=== PATIENT | female | born 1970 | race Caucasian/White ===

== ENCOUNTER 2021-04-02 12:58 | Outpatient (REF) | payer MEDICAID, SELFPAY ==
[2021-04-04 16:01] LABS: COVID-19 RT-PCR UVMMC Result Negative (Negative)
== END 2021-04-02 12:59 | disposition home or self-care (01) ==
LOC: LBN 12:58
PROVIDERS: Visit Provider Physician Assistant Medical
DX: Z20.822 Contact with and (suspected) exposure to COVID-19 (principal); J06.9 Acute upper respiratory infection, unspecified
CPT/HCPCS: U0003

== ENCOUNTER 2021-05-25 09:52 | Outpatient (REF) | payer MEDICAID, SELFPAY ==
[2021-05-25 15:59] LABS: ALT 76 U/L (14-59); AST 47 U/L (15-37); Alkaline Phosphatase 156 U/L (46-116); Anion Gap 11.4 mmol/L (3-11); BUN 10 mg/dL (7-18); Bilirubin, Total 0.6 mg/dL (0.2-1.0); CO2 25.6 mmol/L (21.0-32.0); CREATININE 0.7 mg/dL (0.55-1.02); Calcium 9.1 mg/dL (8.5-10.1); Calculated LDL 130 mg/dL (<100); Chloride 103 mmol/L (98-107); Cholesterol 189 mg/dL (<200); Glucose 289 mg/dL (74-106); HDL Cholesterol 47 mg/dL (40-60); Sodium 140 mmol/L (136-145); TSH (W/Ref FT4) 2.74 uIU/mL (0.36-3.74); Total Protein 7.2 g/dL (6.4-8.2); Triglyceride 60 mg/dL (<150)
[2021-05-25 16:52] LABS: Hemoglobin A1C 10.7 % (<5.7)
== END 2021-05-25 09:53 | disposition home or self-care (01) ==
LOC: NCHCN 09:52
PROVIDERS: Visit Provider Nurse Practitioner Family
DX: Z13.29 Encounter for screening for other suspected endocrine disorder (principal); Z13.220 Encounter for screening for lipoid disorders; R73.9 Hyperglycemia, unspecified; Z00.00 Encounter for general adult medical examination without abnormal findings
CPT/HCPCS: 80053; 80061; 83036; 84443

== ENCOUNTER 2021-11-12 20:35 | Outpatient (REF) | payer MEDICAID, SELFPAY ==
[2021-11-12 15:52] LABS: Hemoglobin A1C 6.2 % (<5.7)
[2021-11-12 16:33] LABS: Vitamin D 25 Total 7.1 ng/mL (30-100)
[2021-11-12 16:35] LABS: ALT 48 U/L (14-59); AST 32 U/L (15-37); Albumin 4.4 g/dL (3.4-5.0); Alkaline Phosphatase 82 U/L (46-116); Anion Gap 12.6 mmol/L (3-11); BUN 12 mg/dL (7-18); Bilirubin, Total 0.7 mg/dL (0.2-1.0); CO2 26.4 mmol/L (21.0-32.0); CREATININE 0.7 mg/dL (0.55-1.02); Calcium 9.7 mg/dL (8.5-10.1); Chloride 101 mmol/L (98-107); Glucose 107 mg/dL (74-106); Potassium 4.2 mmol/L (3.5-5.1); Sodium 140 mmol/L (136-145); Total Protein 7.5 g/dL (6.4-8.2); Vitamin B12 282 pg/mL (193-986)
== END 2021-11-12 20:36 | disposition home or self-care (01) ==
LOC: NCHCN 20:35
PROVIDERS: Visit Provider Nurse Practitioner Family
DX: E11.65 Type 2 diabetes mellitus with hyperglycemia (principal); K76.0 Fatty (change of) liver, not elsewhere classified
CPT/HCPCS: 80053; 82306; 82607; 83036

== ENCOUNTER 2021-11-21 14:26 | Outpatient (REF) | payer MEDICAID, SELFPAY | END 2021-11-21 14:27 | disposition home or self-care (01) | LOC: LBN 14:26 | PROVIDERS: Visit Provider Physician Assistant Medical | DX: R39.15 Urgency of urination (principal) | CPT/HCPCS: 87077; 87086; 87186 ==

== ENCOUNTER 2022-11-04 14:05 | Outpatient (REF) | payer MEDICAID, SELFPAY ==
[2022-11-04 16:32] LABS: ALT 52 U/L (14-59); AST 25 U/L (15-37); Albumin 4.2 g/dL (3.4-5.0); Alkaline Phosphatase 133 U/L (46-116); BUN 12 mg/dL (7-18); Bilirubin, Total 0.3 mg/dL (0.2-1.0); CREATININE 0.9 mg/dL (0.55-1.02); Calcium 9.5 mg/dL (8.5-10.1); Chloride 104 mmol/L (98-107); Estimated GFR 77.88 (mL/min/1.73m2); Glucose 134 mg/dL (74-106); Potassium 4.2 mmol/L (3.5-5.1); Sodium 141 mmol/L (136-145); Total Protein 7.3 g/dL (6.4-8.2)
[2022-11-04 16:52] LABS: Vitamin D 25 Total 40.2 ng/mL (30-100)
== END 2022-11-04 14:06 | disposition home or self-care (01) ==
LOC: NCHCN 14:05
PROVIDERS: Visit Provider Nurse Practitioner Family
DX: E11.9 Type 2 diabetes mellitus without complications (principal); K76.0 Fatty (change of) liver, not elsewhere classified; E55.9 Vitamin D deficiency, unspecified
CPT/HCPCS: 80053; 82306

== ENCOUNTER 2023-03-25 00:11 | Outpatient (CLI) | payer MEDICAID, SELFPAY ==
--- NOTE | 2023-03-25 10:56 | DI.CTLCSR_ITS ---
Exam(s) CT CHEST LUNG CANCER SCREEN EXAM: CT CHEST LUNG CANCER SCREEN CLINICAL HISTORY: H/O TOBACCO USE IN REMISSION, Z87.891 TECHNIQUE: Imaging Protocol: Axial computed tomography images with coronal and sagittal reformatted images were created and reviewed COMPARISON: No exams were available for comparison FINDINGS: Tracheobronchial tree: Patent where visualized. Pulmonary parenchyma: No consolidation or dominant measurable mass. Mild centrilobular emphysematous changes are present. There is a linear vessel seen in the right lower lobe which tracks to the right major fissure. Lung Nodules: None. Mediastinum and Palma: No dominant adenopathy or fluid collection. The esophagus is unremarkable. Thyroid gland: Unremarkable. Lymph nodes: Unremarkable. Pleura: No effusion or pneumothorax. Heart: The heart is not dilated. No coronary artery calcifications are seen. No pericardial effusion . Aorta: Thoracic aorta non-dilated. Upper abdomen: Unremarkable. Soft Tissues: Unremarkable. Bones: Within normal limits. IMPRESSION: No pulmonary nodules. Lung RADS Cat 1 - Negative: No nodules and definitely benign nodules Lung-RADS 1.0 CATEGORIES: Category 0 - Prior chest CT exam(s) being located for comparison. Category 1 - Annual screening in 12 months. No nodules or definitely benign nodules. Category 2 - Annual screening in 12 months. Benign appearance. Nodules with low likelihood of becomin g active cancer. Category 3 - 6-month follow-up. Probably benign. Short-term follow-up suggested. Nodules with low lik elihood of becoming active cancer. Category 4A - 3-month follow-up and CT/PET if >8 mm in size. Suspicious finding. Findings which requi re additional testing. Category 4B - Findings which require additional testing and tissue sampling. Suspicious finding. Category 4X - Category 3 or 4 nodules with additional features or imaging findings that increases the suspicion of malignancy. Modifier S- Potentially clinically significant finding. (Non lung cancer) RADIATION DOSE DELIVERED: 69mGy.cm Total DLP 69mGy.cmTotal DLP DATA REPOSITORY: All CT scans at this facility are submitted to the National Radiology Data Registry (NRDR) Dose Index Registry (DIR) with the [employer] (ACR). RADIATION OPTIMIZATION: All CT scans at this facility use at least one of these dose optimization te chniques: automated exposure control; mA and/or kV adjustment per patient size (includes targeted exa ms where dose is matched to clinical indication); or iterative reconstruction.
== END 2023-03-25 00:31 ==
LOC: DI 00:11
PROVIDERS: Visit Provider Nurse Practitioner Family
DX: Z12.2 Encounter for screening for malignant neoplasm of respiratory organs (principal); Z87.891 Personal history of nicotine dependence
CPT/HCPCS: 71271

== ENCOUNTER 2023-09-16 15:47 | Emergency (ER) | payer MEDICAID, SELFPAY ==
[2023-09-16 15:49] VITALS: BP 177/89; PULSE 70; RESP 18; TEMP 37; O2SAT 98
--- OUTSIDE RECORDS SUMMARY | 2023-09-16 15:52 | XMS_ITS | Continuity of Care Document ---
Author Name Unknown Organization [facility] Ambulatory Clinics Address [address] [place] [address] Care Team Providers Care Forest Botany Instructor Name Role Phone CHRISTINE ELEANOR HERNANDEZ Primary Care Physician Encounter [facility] NBR [id number] Date(s): 09/28/22 - 09/28/22 [facility] Ambulatory Clinics [address] [place], [place] [address] Encounter Diagnosis Bacterial vaginosis(Discharge Diagnosis) - 09/28/22 Other specified bacterial agents as the cause of diseases classified elsewhere (Discharge Diagnosis) - 09/28/22 Screening for malignant neoplasm of cervix(Discharge Diagnosis) - 09/28/22 Cervical cancer screening(Discharge Diagnosis) - 09/28/22 Uterine prolapse(Discharge Diagnosis) - 09/28/22 Discharge Disposition: Home or Self Care Attending Physician: Carlos Burkett MD Allergies, Adverse Reactions, Alerts Substance Reaction Severity Status penicillin Unknown Active Functional Status 09/28/22 Other exposure to Infectious Disease Non e Medications !-Flagyl 500 mg oral tablet 500 mg = 1 tab, Oral, BID, # 14 tab, 0 Refill(s), Pharmacy: [facility] #[id number] Start Date: 09/28/22 Stop Date: 10/05/22 Status: Ordered acyclovir 800 mg oral tablet 800 mg = 1 tab, Oral, Twice daily for 5 days for infection PRN, 0 Refill(s) Start Date: 09/28/22 Status: Ordered buPROPion 300 mg/24 hours (XL) oral tablet, extended release 0 Refill(s) Start Date: 06/18/22 Status: Ordered clobetasol 0.05% topical ointment 1 application to affected area externally twice a day for one week, then once a day for one week, then weekly., 0 Refill(s) Start Date: 09/28/22 Status: Ordered dextroamphetamine-amphetamine 30 mg oral capsule, extended release 0 Refill(s) Start Date: 06/18/22 Status: Ordered fluconazole 200 mg =, 1 tablet orally today and repeat in 4 days., 0 Refill(s) Start Date: 09/28/22 Status: Ordered fluticasone 50 mcg/inh nasal spray 0 Refill(s) Start Date: 06/18/22 Status: Ordered ibuprofen 200 mg =, 1 tablet with food or milk as needed orally three times a day., 0 Refill(s) Start Date: 09/28/22 Status: Ordered ketoconazole 2% topical cream Apply topically to feet twice daily external., 0 Refill(s) Start Date: 09/28/22 Status: Ordered Lexapro 10 mg oral tablet 10 mg = 1 tab, Oral, Daily, # 30 tab, 0 Refill(s) Start Date: 09/28/22 Status: Ordered melatonin 10 mg oral capsule 2 gummies every night at bedtime. 10mg total., 0 Refill(s) Start Date: 09/28/22 Status: Ordered metFORMIN 500 mg =, Oral, BID, 1 tablet with a meal orally twice a day, 0 Refill(s) Start Date: 09/28/22 Status: Ordered metFORMIN 500 mg oral tablet 0 Refill(s) Start Date: 06/18/22 Status: Ordered omeprazole 20 mg oral delayed release capsule 20 mg = 1 cap, Oral, Daily, 0 Refill(s) Start Date: 06/18/22 Status: Ordered Trulicity Pen 1.5 mg/0.5 mL subcutaneous solution Trulicity 1.5 MG/0.5 ML solution pen-injector as directed subcutaneous once a week, 0 Refill(s) Start Date: 06/18/22 Status: Ordered valACYclovir 1 g =, 1g once daily., 0 Refill(s) Start Date: 09/28/22 Status: Ordered Wellbutrin XL 150 mg =, 1 tablet in the morning orally once a day, 0 Refill(s) Start Date: 09/28/22 Status: Ordered zolpidem 10 mg =, 1 tablet at bedtime as needed orally once a day., 0 Refill(s) Start Date: 09/28/22 Status: Ordered zolpidem 5 mg oral tablet 0 Refill(s) Start Date: 06/18/22 Status: Ordered Problem List Condition Confirmation Course Effective Dates Status Health St atus Informant ADHD Confirmed Active Chlamydia Confirmed Active Depressive disorder Confirmed Active Genital herpes Confirmed Active Diabetes, gestational Confirmed Active Myalgia Confirmed Active Obesity Confirmed Active Knee pain Confirmed Active DM (diabetes mellitus), type 2 1 Confirmed Active Cubital tunnel syndrome Confirmed 02/1998 Active 1Diagnosed 04/2021 Procedures Procedure Date Related Diagnosis Body Site Status Excision 2020 Completed Colonoscopy 2 12/28/18 Completed EGD - Esophagogastroduodenoscopy 3 12/28/18 Completed Cancer of skin 4 10/2018 Complete d Bilateral tubal ligation 5 05/05/15 Completed Wrist 6 08/09/13 Completed Surgery 7 Completed 1Excision - skin cancer left arm [address] C[address]is 3Dr. Cimis 4Right arm, skin cancer 5Novasure ablation, IUD removal 6Plate in wrist 7Cubital tunnel surgery on right elbow Vital Signs Most recent to oldest [Reference Range]: 1 Blood Pressure [90-140/60-90 mmHg] 120/8 0mmHg (09/28/22 10:58 AM) Weight 94.4 kg (09/28/22 10:58 AM) Weight Measured (lbs) 208.116 lb (09/28/22 10:58 AM) [place] Body Weight Calculated 47.8 kg (09/28/22 10:58 AM) Height 154.94 cm (09/28/22 10:58 AM) Height/Length Measured (inches) 61 inch (09/28/22 10:58 AM) BSA Measured 2.02 m2 (09/28/22 10:58 AM) Body Mass Index 39.32 kg/m2 (09/28/22 10:58 AM) Social History Social History Type Response Smoking Status Smoking tobacco use: Former tobacco user;Never entered on: 09/28/22 Sex Female Physician Outpatient Note * Carlos Burkett MD: PERFORM Event Display: Office Clinic Note Physician Authored Date: [id number] ASNTIAGO RODAS :1970 Age:51 years Sex:Female Visit Date:09/28/2022 Primary Care Physician: ELEANOR KING APRN Chief Complaint Pt states she has a strange odor, itchiness on the inside, possible laceration on labia. Sx startedlast night. Burning with urination d/t possible laceration. Denies discharge. Denies any new soaps,lotions, detergents. History of Present Illness 3-year-old presents today for evaluation of??vulvar irritation and??odor. ??She reports that this been present for last couple of days. ??She denies any abnormal discharge. ??No normal bleeding.?? She does note??an area of irritation on the vulva??in the interlabial fold??on the left. ?? 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 Mammogram is overdue. Review of Systems As per [facility] Physical Exam Vitals & Measurements BP:??120/80?? HT:??154.94??cm?? WT:??94.4??kg?? BMI:??39.32?? BSA:??2.02?? Pelvic: Small excoriation noted in the left interlabial fold. Uterine prolapse beyond introitus noted but not terribly bothersome to the patient at this point. No abnormal discharge. Pap smear collected. ?? Wet prep: Rare clue cells. Assessment/Plan 1.??Bacterial vaginosis??N76.0 Will treat with flagyl 500 mg BID x 7 days. Follow up if symptoms do not improve or resolve. ?? 2.??Screening for malignant neoplasm of cervix??Z12.4,??Cervical cancer screening??Z12.4 Pap smear collected. Will contact patient with results. Ordered: Outside Lab Request, 09/28/22 13:19:00 EST, Stop date 09/28/22 13:19:00 EST, Cervical cancer screening ?? 3.??Uterine prolapse??N81.4 Asymptomatic. She has trialed a pessary in the past. Does not desire any treatment at this point. ?? Other specified bacterial agents as the cause of diseases classified elsewhere??B96.89 ?? Orders: !-Flagyl 500 mg oral tablet, 500 mg = 1 tab, Oral, BID, # 14 tab, 0 Refill(s), Pharmacy: [facility] #[id number] Problem List/Past Medical History Ongoing ADHD Chlamydia Cubital tunnel syndrome Depressive disorder Diabetes, gestational DM (diabetes mellitus), type 2 Genital herpes Knee pain Myalgia Obesity Historical Procedure/Surgical History ???Excision (2020)???Colonoscopy (12/29/2018)???EGD - Esophagogastroduodenoscopy (12/29/2018)???Cancer of skin (10/2018)???Bilateral tubal ligation (05/06/2015)???Wrist (08/10/2013)???Surgery Medications !-Flagyl 500 mg oral tablet, 500 mg= 1 tab, Oral, BID acyclovir 800 mg oral tablet, 800 mg= 1 tab, Oral buPROPion 300 mg/24 hours (XL) oral tablet, extended release clobetasol 0.05% topical ointment dextroamphetamine-amphetamine 30 mg oral capsule, extended release fluconazole, 200 mg fluticasone 50 mcg/inh nasal spray ibuprofen, 200 mg ketoconazole 2% topical cream Lexapro 10 mg oral tablet, 10 mg= 1 tab, Oral, Daily melatonin 10 mg oral capsule metFORMIN, 500 mg, Oral, BID metFORMIN 500 mg oral tablet omeprazole 20 mg oral delayed release capsule, 20 mg= 1 cap, Oral, Daily Trulicity Pen 1.5 mg/0.5 mL subcutaneous solution valACYclovir, 1 g Wellbutrin XL, 150 mg zolpidem, 10 mg zolpidem 5 mg oral tablet Allergies penicillin Social History Alcohol Current- Comments: Rare Electronic Cigarette/Vaping Electronic Cigarette Use: Former use, quit more than 90 days ago. Employment/School Unemployed Home/Environment Lives with Children, Spouse. Living situation: Home/Independent. Sexual Sexually active: Yes. Substance Use Never Tobacco Former tobacco user Tobacco Use:. Never Smokeless Tobacco use:. Family History Alcoholism: Father. Bladder cancer: Father. Bowel: Son. Cancer: Brother and Grandfather (M). Dementia: Grandmother (P). Depression: Sister. Diabetes mellitus: Mother and Grandmother (P). Family member : Father, Grandfather (M), Grandfather (P), Grandmother (M) and Grandmother (P). Hypercholesterolemia: Sister. Hypertension: Father. Mental illness: Sister. Smoker: Father. Thyroid: Mother. Electronically Signed on 09/28/22 01:26 PM Carlos Burkett MD Patient Care team information Personnel Name: ELEANOR KING APRN Address: Address: [address] [place] [id number] [place]
--- OUTSIDE RECORDS SUMMARY | 2023-09-16 15:52 | XMS_ITS | Continuity of Care Document ---
Author Name Unknown Organization [facility] Address [address] [place] [id number] Encounter [facility] NBR [id number] Date(s): 01/13/23 - 01/13/[address] [address]- Discharge Disposition: Home or Self Care Attending Physician: ELEANOR KING APRN Admitting Physician: ELEANOR KING APRN Referring Physician: ELEANOR KING APRN Allergies, Adverse Reactions, Alerts Substance Reaction Severity Status penicillin Unknown Active Medications !-Flagyl 500 mg oral tablet 500 mg = 1 tab, Oral, BID, # 14 tab, 0 Refill(s), Pharmacy: [facility] #[id number] Start Date: 09/28/22 Stop Date: 10/05/22 Status: [...] 0 Refill(s) Start Date: 06/18/22 Status: Ordered Diflucan 150 mg oral tablet 150 mg = 1 tab, Oral, Once, Take one tablet and repeat in 3 days, # 2 tab, 1 Refill(s), Pharmacy: [facility] #[id number] Start Date: 11/03/22 Status: Ordered fluticasone 50 mcg/inh nasal spray [...] wrist 7Cubital tunnel surgery on right elbow Results Radiology Reports * Exam Date Time Procedure Performing Provider Status 01/13/23 9:05 AM MG Mammo Diagnostic Right Patrica Mckenna cari; Auth (Verified) Notes: (MG Mammo Diagnostic Right) Reason For Exam: ABNORMAL MG MG Mammo Diagnostic Right EXAM DESCRIPTION: MG Mammo Diagnostic Right 01/13/2023 INDICATION: ABNORMAL MG COMPARISON: Screening mammogram from 12/13/2022 BREAST DENSITY: There are scattered areas of fibroglandular density. FINDINGS: Spot compression right CC view, rolled right CC views and true lateral view the right breast were performed with digital breast tomosynthesis. Images were reviewed using computer aided detection. Previously described small asymmetry in the medial aspect of the right breast persists on problem solving views. Right breast ultrasound, reported separately, demonstrated a small cyst in this region. No mammographic evidence of malignancy in the right breast. Results were discussed with the patient at the time of examination. ASSESSMENT: No mammographic evidence of malignancy. Benign findings. BI-RADS category 2. RECOMMENDATION: 1: Screening mammography in 1 year JOB #: [id number] Final Signed by: Carlos Oliver MD Signed (Electronic Signature): 01/13/2023 9:48 am Social History Social History Type Response Smoking Status Smoking tobacco use: Former tobacco user;Never entered on: 09/28/22 Sex Female MG Breast - right Diagnostic * Carlos Oliver MD: VERIFY, VERIFY Event Display: Report EXAM DESCRIPTION: MG Mammo Diagnostic Right 01/13/2023 INDICATION: ABNORMAL MG COMPARISON: Screening mammogram from 12/13/2022 BREAST DENSITY: There are scattered areas of fibroglandular density. FINDINGS: Spot compression right CC view, rolled right CC views and true lateral view the right breast were performed with digital breast tomosynthesis. Images were reviewed using computer aided detection. Previously described small asymmetry in the medial aspect of the right breast persists on problem solving views. Right breast ultrasound, reported separately, demonstrated a small cyst in this region. No mammographic evidence of malignancy in the right breast. Results were discussed with the patient at the time of examination. ASSESSMENT: No mammographic evidence of malignancy. Benign findings. BI-RADS category 2. RECOMMENDATION: 1: Screening mammography in 1 year JOB #: [id number] Final Signed by: Carlos Oliver MD Signed (Electronic Signature): 01/13/2023 9:48 am Patient Care team information Care Team Related Persons Name: BIANCA RODAS Address: [address] [phone] [facility] Name: BIANCA RODAS Address: [address] [phone] [facility]
--- OUTSIDE RECORDS SUMMARY | 2023-09-16 15:52 | XMS_ITS | Continuity of Care Document ---
Author Name Unknown Organization [facility] Address [address] [place] [id number] Encounter [facility] NBR [id number] Date(s): 01/13/23 - 01/13/[address] [address] [place] Discharge Disposition: Home or Self Care Attending Physician: FRANKY FERNANDEZ Admitting Physician: FRANKY FERNANDEZ Referring Physician: FRANKY FERNANDEZ Allergies, Adverse Reactions, Alerts Substance Reaction Severity Status penicillin Unknown Active Medications !-Flagyl 500 mg oral tablet 500 mg = 1 tab, Oral, BID, # 14 tab, 0 Refill(s), Pharmacy: [facility] #[id number] Start Date: 09/28/22 Stop Date: 10/05/22 Status: [...] days, # 2 tab, 1 Refill(s), Pharmacy: [facility] #[id number] Start Date: 11/03/22 Status: Ordered fluticasone 50 [...] Date Time Procedure Performing Provider Status 01/13/23 9:45 AM US Breast Limited Right Fernando Garcia (Verified) Notes: (US Breast Limited Right) Reason For Exam: ABNORMAL MG US Breast Limited Right EXAM DESCRIPTION: US Breast Limited Right 01/13/2023 INDICATION: US Breast Limited Right TECHNIQUE: Limited grayscale ultrasound examination of the right breast was performed targeted to small asymmetry on mammogram. This examination was performed in conjunction with diagnostic right mammogram. COMPARISON: Diagnostic right mammogram from 01/13/2023 and screening mammogram from 12/13/2022 FINDINGS: Small smoothly marginated ovoid hypoechoic lesion with faint through transmission at the 3 o'clock position 2 cm from the nipple consistent with small cyst with mild internal echoes measuring approximately 5 x 5 x 3 mm. No suspicious findings in this region Results were discussed with the patient at the time of examination. ASSESSMENT: No evidence of malignancy. Benign findings. BI-RADS category 2. RECOMMENDATION: Screening mammography in 1 year JOB #: [id number] Final Signed by: Carlos Oliver MD Signed (Electronic Signature): 01/13/2023 9:49 am Social History Social History Type Response Smoking Status Smoking tobacco use: Former tobacco user;Never entered on: 09/28/22 Sex Female US Breast - right limited * Carlos Oliver MD: VERIFY, VERIFY Event Display: Report EXAM DESCRIPTION: US Breast Limited Right 01/13/2023 INDICATION: US Breast Limited Right TECHNIQUE: Limited grayscale ultrasound examination of the right breast was performed targeted to small asymmetry on mammogram. This examination was performed in conjunction with diagnostic right mammogram. COMPARISON: Diagnostic right mammogram from 01/13/2023 and screening mammogram from 12/13/2022 FINDINGS: Small smoothly marginated ovoid hypoechoic lesion with faint through transmission at the 3 o'clock position 2 cm from the nipple consistent with small cyst with mild internal echoes measuring approximately 5 x 5 x 3 mm. No suspicious findings in this region Results were discussed with the patient at the time of examination. ASSESSMENT: No evidence of malignancy. Benign findings. BI-RADS category 2. RECOMMENDATION: Screening mammography in 1 year JOB #: [id number] Final Signed by: Carlos Olvier MD Signed (Electronic Signature): 01/13/2023 9:49 am Patient Care team information Care Team Related Persons Name: BIANCA RODAS Address: [address] [phone] [facility] Name: BIANCA RODAS Address: [address] [phone] [facility]
--- OUTSIDE RECORDS SUMMARY | 2023-09-16 15:52 | XMS_ITS | Continuity of Care Document ---
Author Name Unknown Organization [facility] Ambulatory Clinics Address [address] [place] [address] Care Team Providers Care Income Tax Investigator Name Role Phone Unavailable, Physician Primary Care Physician Un available Encounter [facility] NBR [id number] Date(s): 08/27/23 - 08/27/23 [facility] Ambulatory Clinics [address] [place], [place] [address] Encounter Diagnosis Influenza A(Discharge Diagnosis) - 08/27/23 Discharge Disposition: Home or Self Care Attending Physician: Matilde Poole PA-C Admitting Physician: Matilde Poole PA-C Allergies, Adverse Reactions, Alerts Substance Reaction Severity Status penicillin Unknown Active Medications !-Flagyl 500 mg oral tablet 500 mg = 1 tab, Oral, BID, # 14 tab, 0 Refill(s), Pharmacy: [facility] #[id number] Start Date: 09/28/22 Stop Date: 10/05/22 Status: [...] days, # 2 tab, 1 Refill(s), Pharmacy: [facility] #[id number] Start Date: 11/03/22 Status: Ordered fluticasone 50 [...] 0 Refill(s) Start Date: 06/18/22 Status: Ordered ProAir HFA 90 mcg/inh inhalation aerosol 1 puffs, Inhale, every 6 hr, PRN as needed for wheezing, # 8.5 g, 0 Refill(s), Pharmacy: [facility] #[id number], 154.94, cm, 08/27/23 19:33:00 EST, Height, 98.88, kg, 08/27/23 19:36:00 EST, Weight Dosing Start Date: 08/27/23 Status: Ordered Tamiflu 75 mg oral capsule 75 mg = 1 cap, Oral, BID, # 10 cap, 0 Refill(s), Pharmacy: [facility] #[id number], 154.94, cm,08/27/23 19:33:00 EST, Height, 98.88, kg, 08/27/23 19:36:00 EST, Weight Dosing Start Date: 08/27/23 Stop Date: 09/01/23 Status: Ordered Tessalon Perles 100 mg oral capsule 100 mg = 1 cap, Oral, TID, PRN as needed for cough, # 21 cap, 0 Refill(s), [facility][id number], 154.94, cm, 08/27/23 19:33:00 EST, Height, 98.88, kg, 08/27/23 19:36:00 EST, Weight Dosing Start Date: 08/27/23 Stop Date: 09/03/23 Status: Ordered Trulicity Pen 1.5 mg/0.5 mL [...] 7Cubital tunnel surgery on right elbow Results Laboratory List Name Date SARS-CoV-2 (Covid-19) AG (Arlene) POCT Influenza A/B (Arlene) POCT 08/27/23 Most recent to oldest [Reference Range]: 1 SARS-CoV or CoV-2 (COVID-19) Ag (Arlene) [Negative] Negative (08/27/23 7:50 PM) Employed in healthcare? Unknown *NA* (08/27/23 7:50 PM) Symptomatic as defined by CDC? Unknown *NA* (08/27/23 7:50 PM) Date of onset (Lab) Unknown *NA* (08/27/23 7:50 PM) Hospitalized due to COVID-19? Unknown *NA* (08/27/23 7:50 PM) In ICU? Unknown *NA* (08/27/23 7:50 PM) Group care resident? Unknown *NA* (08/27/23 7:50 PM) status? Unknown *NA* (08/27/23 7:50 PM) Influenza A (Arlene) POCT [Negative] Posi tive *ABN* (08/27/23 7:49 PM) Influenza B (Arlene) POCT [Negative] Nega tive (08/27/23 7:49 PM) Vital Signs Most recent to oldest [Reference Range]: 1 Temperature Tympanic [36.6-38.1 Deg C] 3 7.8 Deg C (08/27/23 7:33 PM) Peripheral Pulse Rate [60-100 bpm] 98 bp m (08/27/23 7:33 PM) Respiratory Rate [12-24 br/min] 20 br/mi n (08/27/23 7:33 PM) Blood Pressure [90-140/60-90 mmHg] 133/7 9mmHg (08/27/23 7:33 PM) Mean Arterial Pressure, Cuff [70-110 mmH g] 97 mmHg (08/27/23 7:33 PM) Weight 98.88 kg (08/27/23 7:33 PM) Weight Measured (lbs) 217.993 lb (08/27/23 7:33 PM) Weight Dosing 98.880 kg (08/27/23 7:33 PM) Height 154.94 cm (08/27/23 7:33 PM) Height/Length Measured (inches) 61 inch (08/27/23 7:33 PM) BSA Measured 2.06 m2 (08/27/23 7:33 PM) Body Mass Index 41.19 kg/m2 (08/27/23 7:33 PM) Social History Social History Type Response Smoking Status Smoking tobacco use: Former tobacco user;Never entered on: 09/28/22 Sex Female Patient Care team information Care Team Personnel Name: Unavailable, Physician Position: No Access Member Role: Primary Care Physician Care Team Related Persons Name: BIANCA RODAS Address: [address] [phone] [facility] Name: BIANCA RODAS Address: [address] [phone] [facility]
--- OUTSIDE RECORDS SUMMARY | 2023-09-16 15:52 | XMS_ITS | Continuity of Care Document ---
Author Name Unknown Organization [facility] Ambulatory Clinics Address [address] [place] [address] Encounter [facility] NBR [id number] Date(s): 06/18/22 - 06/18/22 [facility] Ambulatory Clinics [address] [place], [place] [address] Encounter Diagnosis Sore throat(Discharge Diagnosis) - 06/18/22 Discharge Disposition: Home or Self Care Attending Physician: Jess Santiago APRN Functional Status 06/18/22 Other exposure to Infectious Disease Non e Medications buPROPion 300 mg/24 hours (XL) oral tablet, extended release 0 Refill(s) Start Date: 06/18/22 Status: Ordered dextroamphetamine-amphetamine 30 mg oral capsule, extended release 0 Refill(s) Start Date: 06/18/22 Status: Ordered fluticasone 50 mcg/inh nasal spray 0 Refill(s) Start Date: 06/18/22 Status: Ordered metFORMIN 500 mg oral tablet 0 Refill(s) Start Date: 06/18/22 Status: Ordered omeprazole 20 mg oral delayed release capsule 0 Refill(s) Start Date: 06/18/22 Status: Ordered Trulicity Pen 1.5 mg/0.5 mL subcutaneous solution 0 Refill(s) Start Date: 06/18/22 Status: Ordered zolpidem 5 mg oral tablet 0 Refill(s) Start Date: 06/18/22 Status: Ordered Results Laboratory List Name Date SARS-CoV-2 (COVID-19) Antigen (Binax) PO CT 06/18/22 Rapid Strep POCT 06/18/22 Most recent to oldest [Reference Range]: 1 SARS-CoV-2 (COVID-19) Ag (Binax) [Negati ve] Negative (06/18/22 11:42 AM) Rapid Strep POCT [Negative] Negative (06/18/22 11:18 AM) Vital Signs Most recent to oldest [Reference Range]: 1 Temperature Tympanic [36.6-37.9 Deg C] 3 6.4 Deg C *LOW* (06/18/22 10:56 AM) Peripheral Pulse Rate [60-100 bpm] 71 bp m (06/18/22 10:56 AM) Blood Pressure [90-140/60-90 mmHg] 107/7 3mmHg (06/18/22 10:56 AM) Weight 81.7 kg (06/18/22 10:56 AM) Weight Measured (lbs) 180.117 lb (06/18/22 10:56 AM) Height 155 cm (06/18/22 10:56 AM) Height/Length Measured (inches) 61.02 in ch (06/18/22 10:56 AM) BSA Measured 1.88 m2 (06/18/22 10:56 AM) Body Mass Index 34.01 kg/m2 (06/18/22 10:56 AM) Social History Social History Type Response Tobacco Never tobacco user T obacco Use:. Sex Hospital Discharge Instructions Patient Education 06/18/2022 10:40:01 Pharyngitis Pharyngitis Pharyngitis is inflammation of the throat (pharynx). It is a very common cause of sore throat. Pharyngitis can be caused by a bacteria, but it is usually caused by a virus. Most cases of pharyngitis get better on their own without treatment. What are the causes? This condition may be caused by: ??? Infection by viruses (viral). Viral pharyngitis spreads easily from person to person (is contagious) through coughing, sneezing, and sharing of personal items or utensils such as cups, forks, spoons, and toothbrushes. ??? Infection by bacteria (bacterial). Bacterial pharyngitis may be spread by touching the nose or face after coming in contact with the bacteria, or through close contact, such as kissing. ??? Allergies. Allergies can cause buildup of mucus in the throat (post-nasal drip), leading to inflammation and irritation. Allergies can also cause blocked nasal passages, forcing breathing throughthe mouth, which dries and irritates the throat. What increases the risk? You are more likely to develop this condition if: ??? You are 5???24 years old. ??? You are exposed to crowded environments such as daycare, school, or dormitory living. ??? You live in a cold climate. ??? You have a weakened disease-fighting (immune) system. What are the signs or symptoms? Symptoms of this condition vary by the cause. Common symptoms of this condition include: ??? Sore throat. ??? Fatigue. ??? Low-grade fever. ??? Stuffy nose (nasal congestion) and cough. ??? Headache. Other symptoms may include: ??? Glands in the neck (lymph nodes) that are swollen. ??? Skin rashes. ??? Plaque-like film on the throat or tonsils. This is often a symptom of bacterial pharyngitis. ??? Vomiting. ??? Red, itchy eyes (conjunctivitis). ??? Loss of appetite. ??? Joint pain and muscle aches. ??? Enlarged tonsils. How is this diagnosed? This condition may be diagnosed based on your medical history and a physical exam. Your health careprovider will ask you questions about your illness and your symptoms. A swab of your throat may be done to check for bacteria (rapid strep test). Other lab tests may also be done, depending on the suspected cause, but these are rare. How is this treated? Many times, treatment is not needed for this condition. Pharyngitis usually gets better in 3???4 days without treatment. Bacterial pharyngitis may be treated with antibiotic medicines. Follow these instructions at home: Medicines ??? Take yalg-hvl-rmtsuyt and prescription medicines only as told by your health care provider. ??? If you were prescribed an antibiotic medicine, take it as told by your health care provider. Donot stop taking the antibiotic even if you start to feel better. ??? Use throat sprays to soothe your throat as told by your health care provider. ??? Children can get pharyngitis. Do not give your child aspirin because of the association with Eliud's syndrome. Managing pain To help with pain, try: ??? Sipping warm liquids, such as broth, herbal tea, or warm water. ??? Eating or drinking cold or frozen liquids, such as frozen ice pops. ??? Gargling with a mixture of salt and water 3???4 times a day or as needed. To make salt water, completely dissolve ?1 tsp (3???6 g) of salt in 1 cup (237 mL) of warm water. ??? Sucking on hard candy or throat lozenges. ??? Putting a cool-mist humidifier in your bedroom at night to moisten the air. ??? Sitting in the bathroom with the door closed for 5???10 minutes while you run hot water in the shower. General instructions ??? Do not use any products that contain nicotine or tobacco. These products include cigarettes, chewing tobacco, and vaping devices, such as e-cigarettes. If you need help quitting, ask your health care provider. ??? Rest as told by your health care provider. ??? Drink enough fluid to keep your urine pale yellow. How is this prevented? To help prevent becoming infected or spreading infection: ??? Wash your hands often with soap and water for at least 20 seconds. If soap and water are not available, use hand property controller. ??? Do not touch your eyes, nose, or mouth with unwashed hands, and wash hands after touching theseareas. ??? Do not share cups or eating utensils. ??? Avoid close contact with people who are sick. Contact a health care provider if: ??? You have large, tender lumps in your neck. ??? You have a rash. ??? You cough up green, yellow-brown, or bloody mucus. Get help right away if: ??? Your neck becomes stiff. ??? You drool or are unable to swallow liquids. ??? You cannot drink or take medicines without vomiting. ??? You have severe pain that does not go away, even after you take medicine. ??? You have trouble breathing, and it is not caused by a stuffy nose. ??? You have new pain and swelling in your joints such as the knees, ankles, wrists, or elbows. These symptoms may represent a serious problem that is an emergency. Do not wait to see if the symptoms will go away. Get medical help right away. Call your local emergency services (911 in the [place] Do not drive yourself to the hospital. Summary ??? Pharyngitis is redness, pain, and swelling (inflammation) of the throat (pharynx). ??? While pharyngitis can be caused by a bacteria, the most common causes are viral. ??? Most cases of pharyngitis get better on their own without treatment. ??? Bacterial pharyngitis is treated with antibiotic medicines. This information is not intended to replace advice given to you by your health care provider. Make sure you discuss any questions you have with your health care provider. Document Revised: 11/11/2021 Document Reviewed: 11/11/2021 [employer] Patient Education ?? 2021 [employer]
--- OUTSIDE RECORDS SUMMARY | 2023-09-16 15:52 | XMS_ITS | Continuity of Care Document ---
Author Name Unknown Organization [facility] Address [address] [place] [id number] Encounter [facility] NBR [id number] Date(s): 12/13/22 - 12/13/[address] [address]- Discharge Disposition: Home or Self Care Attending Physician: ELEANOR KING APRN Admitting Physician: ELEANOR KING APRN Referring Physician: ELEANOR KING APRN Allergies, Adverse Reactions, Alerts Substance Reaction Severity Status penicillin Unknown Active Medications !-Flagyl 500 mg oral tablet 500 mg = 1 tab, Oral, BID, # 14 tab, 0 Refill(s), Pharmacy: [facility] #[id number] Start Date: 09/28/22 Stop Date: 10/05/22 Status: [...] days, # 2 tab, 1 Refill(s), Pharmacy: [facility] #[id number] Start Date: 11/03/22 Status: Ordered fluticasone 50 [...] Exam Date Time Procedure Performing Provider Status 12/13/22 3:24 PM MG Mammo Screening Bilateral DomainUse r, Generated; Auth (Verified) Notes: (MG Mammo Screening Bilateral) Reason For Exam: SCREENING MG Mammo Screening Bilateral EXAM DESCRIPTION: MG Mammo Screening Bilateral 12/13/2022 INDICATION: SCREENING COMPARISON: 12/13/2018 and 12/07/2017 BREAST DENSITY: There are scattered areas of fibroglandular density. FINDINGS: MLO and CC views were performed with digital breast tomosynthesis. Images were reviewed using computer aided detection. Ovoid smoothly marginated asymmetry in the medial aspect of the right breast at posterior depth approximately 12 cm from the nipple which persists on tomosynthesis images as an interval change from prior study. Spot compression right CC view, rolled right CC views and true lateral view the right breast are recommended for further evaluation. If this lesion persists on problem solving views, right breast ultrasound would be warranted Otherwise, no asymmetry, architectural distortion or suspicious grouping of calcifications to suggest malignancy in either breast. ASSESSMENT: Incomplete: Needs additional imaging evaluation and/or prior mammograms for comparison. BI-RADS category 0. RECOMMENDATION: 1: Mammography spot compression right JOB #: [id number] Final Signed by: Carlos Oliver MD Signed (Electronic Signature): 12/13/2022 3:40 pm Social History Social History Type Response Smoking Status Smoking tobacco use: Former tobacco user;Never entered on: 1/31/23 Sex Female MG Breast - bilateral Screening * Carlos Oliver MD: VERIFY, VERIFY Event Display: Report EXAM DESCRIPTION: MG Mammo Screening Bilateral 12/13/2022 INDICATION: SCREENING COMPARISON: 12/13/2018 and 12/07/2017 BREAST DENSITY: There are scattered areas of fibroglandular density. FINDINGS: MLO and CC views were performed with digital breast tomosynthesis. Images were reviewed using computer aided detection. Ovoid smoothly marginated asymmetry in the medial aspect of the right breast at posterior depth approximately 12 cm from the nipple which persists on tomosynthesis images as an interval change from prior study. Spot compression right CC view, rolled right CC views and true lateral view the right breast are recommended for further evaluation. If this lesion persists on problem solving views, right breast ultrasound would be warranted Otherwise, no asymmetry, architectural distortion or suspicious grouping of calcifications to suggest malignancy in either breast. ASSESSMENT: Incomplete: Needs additional imaging evaluation and/or prior mammograms for comparison. BI-RADS category 0. RECOMMENDATION: 1: Mammography spot compression right JOB #: [id number] Final Signed by: Carlos Oliver MD Signed (Electronic Signature): 12/13/2022 3:40 pm Patient Care team information Care Team Related Persons Name: BIANCA RODAS Address: [address] [id number] [facility] Name: BIANCA RODAS Address: [address] [id number] [place]
--- OUTSIDE RECORDS SUMMARY | 2023-09-16 15:52 | XMS_ITS | Continuity of Care Document ---
Author Name Unknown Organization [facility] Ambulatory Clinics Address [address] [place] [address] Encounter [facility] FIN NBR [id number] Date(s): 09/15/22 - 09/15/22 [facility] Ambulatory Clinics [address], [place] [address] Encounter Diagnosis Crushing injury of third toe of left foot(Discharge Diagnosis) - 09/15/22 Discharge Disposition: Home or Self Care Attending Physician: Jesse Ignacio. PA Allergies, Adverse Reactions, Alerts Substance Reaction Severity Status penicillin Unknown Active Medications buPROPion 300 mg/24 hours (XL) oral [...] 0 Refill(s) Start Date: 06/18/22 Status: Ordered Vital Signs Most recent to oldest [Reference Range]: 1 Temperature Tympanic [36.6-37.9 Deg C] 3 6.4 Deg C *LOW* (09/15/22 5:29 PM) Peripheral Pulse Rate [60-100 bpm] 81 bp m (09/15/22 5:29 PM) Respiratory Rate [12-24 br/min] 16 br/mi n (09/15/22 5:29 PM) Blood Pressure [90-140/60-90 mmHg] 118/7 8mmHg (09/15/22 5:29 PM) Social History Social History Type Response Tobacco Never tobacco user T obacco Use:. Sex Hospital Discharge Instructions Patient Education 09/15/2022 17:08:32 Crush Injury of the Foot Crush Injury of the Foot When a crush injury of the foot occurs, many structures within the foot and ankle can be affected. This can result in a complicated injury that may involve: ??? One or more broken (fractured) bones. ??? Lacerations or abrasions of the skin. These increase your risk of infection. ??? Compressed or torn muscles. ??? Torn ligaments and tendons. ??? Broken blood vessels, causing bleeding within the tissues. This can lead to dangerously high pressure within the tissues (compartment syndrome). ??? Damage to nerves. ??? One or more toe amputations. What are the causes? This type of injury can happen when a great amount of force is suddenly applied to the foot. This might occur: ??? During a motor vehicle accident. ??? If a heavy load falls directly onto the foot. ??? If the foot is pulled into a machine during industrial or agricultural work. What are the signs or symptoms? Symptoms will vary depending on which structures in your foot have been injured. Symptoms may include: ??? Moderate or severe pain in the foot, ankle, or leg. ??? Bleeding at the site of injury. ??? Tingling, numbness, or loss of feeling (sensation) in part or all of your foot. ??? Loss of movement in part or all of your foot. How is this diagnosed? Your health care provider will examine you and ask questions about how your injury happened. The exam may include checking for sensation and blood flow into your foot. You may also have tests, including X-rays and procedures to check the pressure in your foot. After initial treatment, additional tests may be done to further diagnose the extent of your injuries. These may include: ??? A nerve conduction study to determine how well the nerves are working in your leg and foot. ??? An MRI to determine if other injuries occurred that do not usually show up on the X-ray. How is this treated? Treatment for this condition depends on the severity of your crush injury. Treatment may include: ??? Thorough cleaning if you have an open wound. This may or may not require surgery. ??? Having a splint applied to your foot or leg. ??? Medicine to relieve pain. ??? Antibiotic medicine to prevent infection. ??? Stitches (sutures) to close open wounds. ??? One or more surgeries to address injuries to skin, bones, joints, tendons, ligaments, muscles, nerves, or blood vessels. Follow these instructions at home: If you have a splint: ??? Wear the splint as told by your health care provider. Remove it only as told by your health care provider. ??? Loosen the splint if your toes tingle, become numb, or turn cold and blue. ??? Keep the splint clean. ??? If the splint is not waterproof: ??? Do not let it get wet. ??? Cover it with a watertight covering when you take a bath or shower. Wound care ??? If you have any skin wounds that were covered with bandages (dressings), follow instructions from your health care provider about how to take care of your wound. Make sure you: ??? Wash your hands with soap and water before and after you change your dressing. If soap and water are not available, use hand insurance office supervisor. ??? Change your dressing as told by your health care provider. ??? Leave stitches (sutures), skin glue, or adhesive strips in place. These skin closures may need to stay in place for 2 weeks or longer. If adhesive strip edges start to loosen and curl up, you maytrim the loose edges. Do not remove adhesive strips completely unless your health care provider tells you to do that. ??? If you have skin wounds, check them every day for signs of infection. Check for: ??? Redness, swelling, or pain. ??? Fluid or blood. ??? Warmth. ??? Pus or a bad smell. Managing pain, stiffness, and swelling ??? If directed, put ice on the injured area. ??? Put ice in a plastic bag. ??? Place a towel between your skin and the bag. ??? Leave the ice on for 20 minutes, 2???3 times a day. ??? Raise (elevate) the injured area above the level of your heart while you are sitting or lying down. Driving ??? Do not drive or use heavy machinery while taking prescription pain medicine. ??? Ask your health care provider when it is safe to drive if you have a splint on your foot or leg. Activity ??? Return to your normal activities as told by your health care provider. Ask your health care provider what activities are safe for you. ??? Work with a physical therapist (PT) or occupational therapist (OT) as told by your health care provider. General instructions ??? Take [id number] and prescription medicines only as told by your health care provider. ??? If you were prescribed an antibiotic, take it as told by your health care provider. Do not stoptaking the antibiotic even if you start to feel better. ??? Do not use any products that contain nicotine or tobacco, such as cigarettes, e-cigarettes, andchewing tobacco. These can delay healing. If you need help quitting, ask your health care provider. ??? Keep all follow-up visits as told by your health care provider. This is important. These include PT and OT visits. Contact a health care provider if: ??? A wound that was sutured opens up. ??? You have redness, swelling, or pain in your foot. ??? You have fluid or blood coming from your foot. ??? Your foot feels warm to the touch. ??? You have pus or a bad smell coming from your foot. ??? You have a fever. Get help right away if: ??? You suddenly develop severe pain in your foot. ??? You previously had sensation in your foot and you suddenly lose sensation. ??? Your symptoms had improved and they suddenly get worse. ??? Your foot or toes are turning pink or blue. Summary ??? When a crush injury of the foot occurs, many structures within the foot and ankle can be affected. ??? This type of injury can happen when a great amount of force is suddenly applied to the foot. ??? Treatment for this condition depends on the severity of your crush injury. This information is not intended to replace advice given to you by your health care provider. Make sure you discuss any questions you have with your health care provider. Document Revised: 11/18/2021 Document Reviewed: 11/18/2021 [email or web address] Patient Education ?? 2021 [employer]. Physician Outpatient Note * Jesse Ignacio. MANDIE: PERFORM Event Display: Office Clinic Note Physician Authored Date: [id number] SANTIAGO RODAS :1970 Age:51 years Sex:Female Visit Date:09/15/2022 Chief Complaint pt states she stubbed left big toe on couch. History of Present Illness This morning patient stubbed her left third toe. ??Increased pain throughout the day. ??Complainingof pain at the base of the toe. ??No other injury. ??No prior injury. Physical Exam Vitals & Measurements T:??36.4?C ??(Tympanic)?? HR:??81??(Peripheral)?? RR:??16?? BP:??118/78?? SpO2:??99%?? Pain Score:??10?? Examination of the left third toe shows ecchymosis at the base. ??With palpable tenderness. ??No crepitus. ??Loss of function secondary to pain. ??Pain is right at the??metacarpal phalangeal joint.??Normal distal sensation. Assessment/Plan 1.??Crushing injury of third toe of left foot??S97.122A X-ray of the left third toe showed no obvious fractures interpreted by myself pending radiology review. ??Recommend pepper tape, stiff shoe, recheck if not improving in the next 2 to 3 weeks. ??Patient agreeable. Ordered: XR Toe(s) 2+ Views Left, 09/15/22 17:48:00 EST, Routine, Reason: Base of left third toe injury, Transport Mode: Ambulatory, Crushing injury of third toe of left foot, ABN Status: Not Required ?? Patient Education Crush Injury of the Foot Problem List/Past Medical History Ongoing No qualifying data Historical No qualifying data Medications buPROPion 300 mg/24 hours (XL) oral tablet, extended release dextroamphetamine-amphetamine 30 mg oral capsule, extended release fluticasone 50 mcg/inh nasal spray metFORMIN 500 mg oral tablet omeprazole 20 mg oral delayed release capsule Trulicity Pen 1.5 mg/0.5 mL subcutaneous solution zolpidem 5 mg oral tablet Allergies penicillin Social History Electronic Cigarette/Vaping Electronic Cigarette Use: Never. Tobacco Never tobacco user Tobacco Use:. Electronically Signed on 09/15/22 06:09 PM Jesse LOCKWOOD Outpatient Summary note * Jesse Ignacio. PA: PERFORM Event Display: Ambulatory Patient Summary Authored Date: [id number] SANTIAGO RODAS :1970 Age:51 years Sex:Female Visit Date:09/15/2022 Ambulatory Visit Instructions We would like to thank you for allowing us to assist you with your healthcare needs. The following includes patient education materials and information regarding your injury/illness. After you leave the office, you may get your health information including your test results, physician notes and discharge information by accessing your Patient Portal. If you do not have a patient portal account set up, please contact __. Medications What When Instructions Unchanged buPROPion (buPROPion 300 mg/ 24 hours (XL) oral tablet, extended release) Unchanged dextroamphetamine-amphetamine (dextroamphetamine-amphetamine 30 mg oral capsule, extendedrelease) Unchanged dulaglutide (Trulicity Pen 1.5 mg/ 0.5 mL subcutaneous solution) Unchanged fluticasone nasal (fluticasone 50 mcg/ inh nasal spray) Unchanged metFORMIN (metFORMIN 500 mg oral tablet) Unchanged omeprazole (omeprazole 20 mg oral delayed release capsule) Unchanged zolpidem (zolpidem 5 mg oral tablet) Your Summary Your Diagnosis Crushing injury of third toe of left foot Your Care Team Attending Physician - Jesse Ignacio. MANDIE Allergies penicillin Education Materials Crush Injury of the Foot When a crush injury of the foot occurs, many structures within the foot and ankle can be affected. This can result in a complicated injury that may involve: ? One or more broken (fractured) bones. ? Lacerations or abrasions of the skin. These increase your risk of infection. ? Compressed or torn muscles. ? Torn ligaments and tendons. ? Broken blood vessels, causing bleeding within the tissues. This can lead to dangerously high pressure within the tissues (compartment syndrome). ? Damage to nerves. ? One or more toe amputations. What are the causes? This type of injury can happen when a great amount of force is suddenly applied to the foot. This might occur: ? During a motor vehicle accident. ? If a heavy load falls directly onto the foot. ? If the foot is pulled into a machine during industrial or agricultural work. What are the signs or symptoms? Symptoms will vary depending on which structures in your foot have been injured. Symptoms may include: ? Moderate or severe pain in the foot, ankle, or leg. ? Bleeding at the site of injury. ? Tingling, numbness, or loss of feeling (sensation) in part or all of your foot. ? Loss of movement in part or all of your foot. How is this diagnosed? Your health care provider will examine you and ask questions about how your injury happened. The exam may include checking for sensation and blood flow into your foot. You may also have tests, including X-rays and procedures to check the pressure in your foot. After initial treatment, additional tests may be done to further diagnose the extent of your injuries. These may include: ? A nerve conduction study to determine how well the nerves are working in your leg and foot. ? An MRI to determine if other injuries occurred that do not usually show up on the X-ray. How is this treated? Treatment for this condition depends on the severity of your crush injury. Treatment may include: ? Thorough cleaning if you have an open wound. This may or may not require surgery. ? Having a splint applied to your foot or leg. ? Medicine to relieve pain. ? Antibiotic medicine to prevent infection. ? Stitches (sutures) to close open wounds. ? One or more surgeries to address injuries to skin, bones, joints, tendons, ligaments, muscles, nerves, or blood vessels. Follow these instructions at home: If you have a splint: ? Wear the splint as told by your health care provider. Remove it only as told by your health care provider. ? Loosen the splint if your toes tingle, become numb, or turn cold and blue. ? Keep the splint clean. ? If the splint is not waterproof: ? Do not let it get wet. ? Cover it with a watertight covering when you take a bath or shower. Wound care ? If you have any skin wounds that were covered with bandages (dressings), follow instructions from your health care provider about how to take care of your wound. Make sure you: ? Wash your hands with soap and water before and after you change your dressing. If soap and water are not available, use hand insurance office supervisor. ? Change your dressing as told by your health care provider. ? Leave stitches (sutures), skin glue, or adhesive strips in place. These skin closures may need to stay in place for 2 weeks or longer. If adhesive strip edges start to loosen and curl up, you may trim the loose edges. Do not remove adhesive strips completely unless your health care provider tells you to do that. ? If you have skin wounds, check them every day for signs of infection. Check for: ? Redness, swelling, or pain. ? Fluid or blood. ? Warmth. ? Pus or a bad smell. Managing pain, stiffness, and swelling ? If directed, put ice on the injured area. ? Put ice in a plastic bag. ? Place a towel between your skin and the bag. ? Leave the ice on for 20 minutes, 2???3 times a day. ? Raise (elevate) the injured area above the level of your heart while you are sitting or lying down. Driving ? Do not drive or use heavy machinery while taking prescription pain medicine. ? Ask your health care provider when it is safe to drive if you have a splint on your foot or leg. Activity ? Return to your normal activities as told by your health care provider. Ask your health care provider what activities are safe for you. ? Work with a physical therapist (PT) or occupational therapist (OT) as told by your health care provider. General instructions ? Take [id number] and prescription medicines only as told by your health care provider. ? If you were prescribed an antibiotic, take it as told by your health care provider. Do not stop taking the antibiotic even if you start to feel better. ? Do not use any products that contain nicotine or tobacco, such as cigarettes, e- cigarettes, and chewing tobacco. These can delay healing. If you need help quitting, ask your health care provider. ? Keep all follow-up visits as told by your health care provider. This is important. These include PTand OT visits. Contact a health care provider if: ? A wound that was sutured opens up. ? You have redness, swelling, or pain in your foot. ? You have fluid or blood coming from your foot. ? Your foot feels warm to the touch. ? You have pus or a bad smell coming from your foot. ? You have a fever. Get help right away if: ? You suddenly develop severe pain in your foot. ? You previously had sensation in your foot and you suddenly lose sensation. ? Your symptoms had improved and they suddenly get worse. ? Your foot or toes are turning pink or blue. Summary ? When a crush injury of the foot occurs, many structures within the foot and ankle can be affected. ? This type of injury can happen when a great amount of force is suddenly applied to the foot. ? Treatment for this condition depends on the severity of your crush injury. This information is not intended to replace advice given to you by your health care provider. Make sure you discuss any questions you have with your health care provider. Document Revised: 11/18/2021 Document Reviewed: 11/18/2021 [email or web address] Patient Education ?? 2021 [employer] Electronically Signed on: 09/15/2022 18:09 ESTSigned by:ESTUARDO
[2023-09-16 15:58] VITALS: BP 177/89; PULSE 70; RESP 18; TEMP 37; O2SAT 98
--- NOTE | 2023-09-16 16:17 | ED.GENADUL_ITS ---
HPI General Mode of arrival: ambulatory . Date/Time Provider Initiated Documentation: 09/16/23 15:49 . Limitations to Documentation: no limitations . Information obtained by: patient . HPI Narrative: 52yo F with known dental disease presenting for worsening left sided dental pain. Has been seeing a dentist regularly and having teeth pulled. Left lower molar scheduled for removal in mid-September, significant pain over the past month. Was on a course of Augmentin recently which was changed to clindamycin after she had diarrhea; pain was much better while on the antibiotic. She comp leted the course about a week ago and this morning began to have severe pain in the same area despite tylenol and ibuprofen at home. She is otherwise in her usual state of health with no fevers, chills, rash, difficultly swallowing, difficulty breathing, facial swelling, or other concerns. Related Data Home Medications Medication Instructions Recorded Confirmed bupropion HCl 300 mg 24 hr tablet, 300 mg PO DAILY 02/03/18 09/16/23 extended release (Wellbutrin XL) dextroamphetamine-amphetamine ER 30 mg PO DAILY 02/03/18 09/16/23 30 mg 24hr capsule,extend release (Adderall XR) metformin 500 mg tablet 500 mg PO DAILY 08/10/23 09/16/23 omeprazole 20 mg capsule,delayed 20 mg PO DAILY 08/10/23 09/16/23 release semaglutide 2 mg/dose (8 mg/3 mL) 2 mg subcut QWEEK 08/10/23 09/16/23 subcutaneous pen injector (Ozempic) clindamycin HCl 150 mg capsule 450 mg (3 x 150 mg) PO TID #126 09/16/23 (Cleocin HCl) caps Previous Rx's Medication Instructions Recorded clindamycin HCl 150 mg capsule 450 mg (3 x 150 mg) PO TID #126 09/16/23 (Cleocin HCl) caps Allergies Allergy/AdvReac Type Severity Reaction Status Date / Time amoxicillin [From Augmentin] AdvReac Diarrhea Verified 08/10/23 13:35 clavulanic acid AdvReac Diarrhea Verified 08/10/23 13:35 [From Augmentin] General Stated Complaint: DentalOral RYLEE: 4 Review of Systems Narrative: see HPI Exam Narrative Exam Narrative: General: Alert, well appearing, well nourished, in no acute distress. Head: Normocephalic, atraumatic Neck: Trachea midline, ?Neck supple. Anterior neck non-tender. ENT: ?MMM.? Poor denition, multiple missing teeth. No visible abscesses, no gingival erythema. Uvula midline. TM's clear. Cardiac: ?No cyanosis. Resp: No respiratory distress. Speaking in full sentences. Abd: ?Non-distended, Extremities: ?No deformities.? No peripheral edema. Neurologic: GCS 15. ? Moves all extremities freely against gravity Course Vital Signs Vital signs: Vital Signs Temperature 37 C 09/16/23 15:49 Pulse 70 09/16/23 15:49 Respiratory Rate 18 09/16/23 15:49 Blood Pressure 177/89 H 09/16/23 15:49 Pulse Oximetry 98 09/16/23 15:49 Temperature 37 C 09/16/23 15:58 Temperature Source Skin 09/16/23 15:58 Pulse 70 09/16/23 15:58 Respiratory Rate 18 09/16/23 15:58 Respiratory Effort Normal 09/16/23 15:56 Blood Pressure 177/89 H 09/16/23 15:58 Blood Pressure Position Supine 09/16/23 15:58 Pulse Oximetry 98 09/16/23 15:58 Oxygen Delivery Method Room Air 09/16/23 15:58 Oxygen Flow Rate 0 09/16/23 15:58 Pain Level 10 09/16/23 15:58 Medical Decision Making 52yo F with known dental disease presenting for worsening left sided dental pain. Left lower molar scheduled for removal in mid-September, significant pain over the past month, improved during course of clindamycin and return about one week after completion of antibiotic. Vital signs and physical exam reassuring. Not septic. Not concerning for deep space neck infection. Would not get labs or CT imaging. No evident drainable abscess. Will treat symptoms in ED with toradol, single dose of oxycodone. Started on 14 days course of clindamycin. Advised close dental and PCP followup. Discussed possibility of dental block if pain remains severe at home despite home treatment, particularly just before sleep; she understands this option and may return to the ED if pain uncontrolled at home. Discharged home; discharge instructions and return precautions were reviewed with patient who verbalized understanding. All questions were answered and she is in agreement with the plan. Quality:SDOH Health Related Social Needs: No Data to Display PFSH All Active Problems (Updated 09/16/23 @ 16:24 by Jordyn Hernandez MD) Pain, dental (Acute) Social History Smoking/Tobacco Use Status: Current every day Tobacco Type: cigarettes Smoking risk assessment performed?: Yes Alcohol Intake: never Substance use type: does not use Housing: house Do you feel safe at home: Yes Do you feel safe in your relationship?: Yes Discharge Plan Disposition Patient Disposition: Home Condition: Good Discharge Details Clinical Impression: Pain, dental Primary Care Provider: FRANKY FERNANDEZ ED Provider: Jordyn Hernandez Home Meds and New Rx's Prescriptions: New clindamycin HCl [Cleocin HCl] 150 mg capsule 450 mg PO TID Qty: 126 0RF Continued omeprazole 20 mg capsule,delayed release(DR/EC) 20 mg PO DAILY metformin 500 mg tablet 500 mg PO DAILY Ozempic 2 mg/dose (8 mg/3 mL) pen injector 2 mg subcut QWEEK dextroamphetamine-amphetamine [Adderall XR] 30 MG capsule,extended release 24hr 30 mg PO DAILY bupropion HCl [Wellbutrin XL] 300 MG tablet extended release 24 hr 300 mg PO DAILY Discharge Instructions Instructions: Toothache (ED) Additional Instructions: Take the antibiotic three times a day for the next 14 days. Call your dentist today to see if they can move up your appointment. Call your primary care doctor today to schedule an appointment within the next 5 days to discuss pain management in the meantime. Return to the emergency department for new or worsening symptoms including fever, facial swelling, inability to swallow, or if you have any other concerns. Referrals: FRANKY FERNANDEZ, BOREMATIC MACHINE OPERATOR [Primary Care Provider] -
[2023-09-16] MEDS: oxyCODONE 5 MG TAB PO (16:34)
[2023-09-16] MEDS: Clindamycin 150 MG CAP 450 MG PO (16:34)
[2023-09-16] MEDS: Ketorolac 15 MG/ML VIAL IM (16:41)
[2023-09-16 16:42] VITALS: BP 166/72; PULSE 82; RESP 16; O2SAT 95
== END 2023-09-16 17:03 | disposition home or self-care (01) ==
PROVIDERS: Emergency Provider Student in an Organized Health Care Education/Training Program; PCP Nurse Practitioner Family
DX: R68.84 Jaw pain (principal); K08.89 Other specified disorders of teeth and supporting structures; I10 Essential (primary) hypertension
CPT/HCPCS: 96372; 99283; J1885

== ENCOUNTER 2023-10-11 13:06 | Outpatient (REF) | payer MEDICAID, SELFPAY ==
[2023-10-11 18:43] LABS: ALT 77 U/L (14-59); AST 50 U/L (15-37); Alkaline Phosphatase 77 U/L (46-116); Anion Gap 12.8 mmol/L (3-11); BUN 11 mg/dL (7-18); Bilirubin, Total 0.8 mg/dL (0.2-1.0); CO2 24.2 mmol/L (21.0-32.0); Calcium 9.3 mg/dL (8.5-10.1); Chloride 104 mmol/L (98-107); Estimated GFR 68.63 (mL/min/1.73m2); Glucose 116 mg/dL (74-106); Potassium 3.7 mmol/L (3.5-5.1); Sodium 141 mmol/L (136-145); Total Protein 7.6 g/dL (6.4-8.2)
[2023-10-11 18:51] LABS: Hemoglobin A1C 6.2 % (<5.7)
[2023-10-11 19:14] LABS: Calculated LDL 98 mg/dL (<100); Cholesterol 164 mg/dL (<200); HDL Cholesterol 56 mg/dL (40-60); Triglyceride 51 mg/dL (<150)
== END 2023-10-11 13:07 | disposition home or self-care (01) ==
LOC: NCHCN 13:06
PROVIDERS: PCP Nurse Practitioner Family; Visit Provider Nurse Practitioner Family
DX: E11.9 Type 2 diabetes mellitus without complications (principal); F90.8 Attention-deficit hyperactivity disorder, other type; R79.89 Other specified abnormal findings of blood chemistry
CPT/HCPCS: 80053; 80061; 83036

== ENCOUNTER 2024-09-03 20:21 | Outpatient (REF) | payer MEDICAID, SELFPAY ==
[2024-09-03 19:29] LABS: Hemoglobin A1C 9.9 % (<5.7)
[2024-09-03 19:39] LABS: ALT 101 U/L (14-59); AST 82 U/L (15-37); Albumin 3.7 g/dL (3.4-5.0); Alkaline Phosphatase 186 U/L (46-116); BUN 9 mg/dL (7-18); CREATININE 0.9 mg/dL (0.55-1.02); Calcium 9.2 mg/dL (8.5-10.1); Chloride 103 mmol/L (98-107); Glucose 304 mg/dL (74-106); Magnesium 1.8 mg/dL (1.8-2.4); Potassium 3.7 mmol/L (3.5-5.1); Sodium 138 mmol/L (136-145); TSH 2.06 uIU/mL (0.36-3.74); Total Protein 6.8 g/dL (6.4-8.2)
[2024-09-04 18:50] LABS: Hepatitis C Ab w Rflx HCV PCR Negative (Negative)
== END 2024-09-03 20:22 | disposition home or self-care (01) ==
LOC: NCHCN 20:21
PROVIDERS: PCP Nurse Practitioner Family; Visit Provider Nurse Practitioner Family
DX: E11.9 Type 2 diabetes mellitus without complications (principal); Z11.59 Encounter for screening for other viral diseases; R00.8 Other abnormalities of heart beat
CPT/HCPCS: 80053; 86803; 83036; 83735; 84443

== ENCOUNTER 2024-09-11 02:50 | Outpatient (CLI) | payer MEDICAID, SELFPAY ==
--- NOTE | 2024-09-11 | DI.CTLCSR_ITS ---
Exam(s) CT CHEST LUNG CANCER SCREEN EXAM: CT CHEST LUNG CANCER SCREEN CLINICAL HISTORY: SCREENING FOR LUNG CA,TOBACCO DEPENDENCE IN REMISSION,FORMER SMOKER, TECHNIQUE: Imaging Protocol: Axial computed tomography images with coronal and sagittal reformatted images were created and reviewed. Lung Computer Aided Detection (CAD) was utilized. COMPARISON: CT CT CHEST LUNG CANCER SCREEN from 03/25/2023 FINDINGS: Tracheobronchial tree: Patent where visualized. No bronchiectasis. Pulmonary parenchyma: No consolidation or dominant measurable mass. No architectural distortion. Cent rilobular emphysematous changes are present. Lung Nodules: The triangular nodule associated with the right major fissure is unchanged. No new pul monary nodules are present. Mediastinum and Palma: No dominant adenopathy or fluid collection. The esophagus is unremarkable. Thyroid gland: Unremarkable. Lymph nodes: Unremarkable. Pleura: No effusion or pneumothorax. Heart: The heart is not dilated. No coronary artery calcifications are seen. No pericardial effusion . Aorta: Thoracic aorta non-dilated. Upper abdomen: There is decreased attenuation of the liver consistent with fatty infiltration. Soft Tissues: Unremarkable. Bones: Within normal limits. IMPRESSION: No new pulmonary nodules. Stable nodular density associated with the right major fissure in the righ t lower lobe. Lung RADS Cat 2 - Benign Appearance / Behavior: Nodules with a very low likelihood of becoming a clin ically active cancer due to size or lack of growth Lung-RADS 1.0 CATEGORIES: Category 0 - Prior chest CT exam(s) being located for comparison. Category 1 - Annual screening in 12 months. No nodules or definitely benign nodules. Category 2 - Annual screening in 12 months. Benign appearance. Nodules with low likelihood of becomin g active cancer. Category 3 - 6-month follow-up. Probably benign. Short-term follow-up suggested. Nodules with low lik elihood of becoming active cancer. Category 4A - 3-month follow-up and CT/PET if >8 mm in size. Suspicious finding. Findings which requi re additional testing. Category 4B - Findings which require additional testing and tissue sampling. Suspicious finding. Category 4X - Category 3 or 4 nodules with additional features or imaging findings that increases the suspicion of malignancy. Modifier S- Potentially clinically significant finding. (Non lung cancer) RADIATION DOSE DELIVERED: 97.53mGy.cm Total DLP 97.53mGy.cmTotal DLP DATA REPOSITORY: All CT scans at this facility are submitted to the National Radiology Data Registry (NRDR) Dose Index Registry (DIR) with the [employer] ([employer]). RADIATION OPTIMIZATION: All CT scans at this facility use at least one of these dose optimization te chniques: automated exposure control; mA and/or kV adjustment per patient size (includes targeted exa ms where dose is matched to clinical indication); or iterative reconstruction.
== END 2024-09-11 03:10 ==
LOC: DI 02:50
PROVIDERS: PCP Nurse Practitioner Family; Visit Provider Nurse Practitioner Family
DX: Z12.2 Encounter for screening for malignant neoplasm of respiratory organs (principal); Z87.891 Personal history of nicotine dependence
CPT/HCPCS: 71271

== ENCOUNTER 2024-10-01 00:15 | Outpatient (CLI) | payer MEDICAID, SELFPAY ==
--- NOTE | 2024-10-01 | DI.US_ITS ---
Exam(s) US ABDOMEN LIMITED EXAM: US ABDOMEN LIMITED CLINICAL HISTORY: Steatosis of liver, K76.0; LFts continue to increase; baseline US TECHNIQUE: Ultrasound abdomen performed using standard protocol. COMPARISON: CT CT CHEST LUNG CANCER SCREEN from 09/11/2024 FINDINGS: LIVER: Enlarged at 20 cm in length. Increased echogenicity and mildly decreased through transmission , consistent moderate hepatic steatosis. No focal liver lesions are seen. GALLBLADDER: No evidence of cholelithiasis. No evidence of wall thickening. No pericholecystic fluid identified. PALOMO'S SIGN: Negative. BILIARY SYSTEM: No intrahepatic or extrahepatic biliary ductal dilation. Right KIDNEY: No evidence of renal calculi. No evidence of hydronephrosis. No renal mass or cyst iden tified. PANCREAS: Normal where visualized. ASCITES: None seen. IMPRESSION: Enlarged liver with moderate hepatic steatosis. DATA REPOSITORY:
== END 2024-10-01 00:35 ==
LOC: DI 00:15
PROVIDERS: PCP Nurse Practitioner Family; Visit Provider Nurse Practitioner Family
DX: K76.0 Fatty (change of) liver, not elsewhere classified (principal)
CPT/HCPCS: 76705

== ENCOUNTER 2024-12-21 11:36 | Outpatient (RCR) | payer MEDICAID, SELFPAY | END 2024-12-26 23:59 | disposition home or self-care (01) | LOC: CARDOPNVT 11:36 | PROVIDERS: PCP Nurse Practitioner Family; Visit Provider Internal Medicine Cardiovascular Disease | DX: R00.2 Palpitations (principal) | CPT/HCPCS: 93225; 93226 ==

== ENCOUNTER 2025-05-13 16:53 | Outpatient (REF) | payer MEDICAID, SELFPAY ==
[2025-05-13 21:05] LABS: Glucose >=1000 mg/dL (Negative)
[2025-05-13 21:45] LABS: C & S Indicated? No; RBC Negative HPF (0-2); WBC 0-2 HPF (0-5)
[2025-05-13 22:13] LABS: COMMENT (LAB VIEW ONLY) 142.80 mg/dL; Microalb ug/mg Crea 7.8 ug/mg Cr
[2025-05-15 13:19] LABS: Bacterial Vaginosis (BV) Negative (Negative); Candida glabrata Negative (Negative); Candida species group Positive (Negative)
== END 2025-05-13 16:54 | disposition home or self-care (01) ==
LOC: NCHCN 16:53
PROVIDERS: PCP Nurse Practitioner Family; Visit Provider Nurse Practitioner Family
DX: E11.65 Type 2 diabetes mellitus with hyperglycemia (principal); Z01.419 Encounter for gynecological examination (general) (routine) without abnormal findings
CPT/HCPCS: 81513; 87481; 87661; 81003; 81015; 82043; 82570

== ENCOUNTER 2025-05-27 09:14 | Outpatient (REF) | payer MEDICAID, SELFPAY ==
--- NOTE | 2025-05-27 08:30 | PAPFT_PTH ---
PATIENT: Kalina José LOC: [facility] U#:[id number] AGE/SX: 54/F ROOM: RE05/27/[address]: Marium Kovacs DO : 1970 BED: DIS: 05/27/2025 SPEC #: [id number] RECD: 05/27/25 12:53 STATUS: ANDRAE REQ #: [id number] EDUARDO: 05/27/25 08:[address]: Marium Kovacs DEPT: [facility] Cytology RECD BY: Harini Blanchard ENTERED: 05/27/25 12:53 SP TYPE: PAPFT OTHR DR: FRANKY FERNANDEZ NP Tissues: 1 - CX/ENDOCX FOR PAP SMEARS Procedures: PAP THIN PREP/[facility] Screening HPV DNA PROBE Comments: [id number] (HPV 16 & 18/45)
== END 2025-05-27 09:15 | disposition home or self-care (01) ==
LOC: LBN 09:14
PROVIDERS: PCP Nurse Practitioner Family; Visit Provider Obstetrics & Gynecology
DX: Z12.4 Encounter for screening for malignant neoplasm of cervix (principal)
CPT/HCPCS: 88142; 87624

== ENCOUNTER 2025-06-24 19:30 | Outpatient (REF) | payer MEDICAID, SELFPAY ==
[2025-06-24 21:23] LABS: HCT 43.2 % (36.0-46.0); HGB 14.5 g/dL (11.2-15.7); MCH 30.1 pg (27.0-33.0); MCHC 33.6 % (32.0-36.0); MCV 90 fL (80-95); MPV 11.5 fL (8.0-11.0); Platelet Count 209 10^3/uL (130-400); RBC 4.81 10^6/uL (3.93-5.22); RDW 12.4 % (11.7-14.6); RDW-SD 40.7 fL; WBC 10.82 10^3/uL (4.4-10.8)
[2025-06-24 21:44] LABS: ALT 113 U/L (14-59); AST 96 U/L (15-37); Albumin 4.1 g/dL (3.4-5.0); Alkaline Phosphatase 127 U/L (46-116); Anion Gap 16.4 mmol/L (3-11); BUN 9 mg/dL (7-18); Bilirubin, Total 0.7 mg/dL (0.2-1.0); CO2 22.6 mmol/L (21.0-32.0); Calcium 9.4 mg/dL (8.5-10.1); Chloride 103 mmol/L (98-107); Estimated GFR 112.78 (mL/min/1.73m2); Glucose 116 mg/dL (74-106); Potassium 4.0 mmol/L (3.5-5.1); Sodium 142 mmol/L (136-145); Total Protein 7.3 g/dL (6.4-8.2)
== END 2025-06-24 19:31 | disposition home or self-care (01) ==
LOC: NCHCN 19:30
PROVIDERS: PCP Nurse Practitioner Family; Visit Provider Nurse Practitioner Family
DX: K76.0 Fatty (change of) liver, not elsewhere classified (principal)
CPT/HCPCS: 80053; 85027